=== PATIENT | female | born 1960 | race African-American/Black ===

== ENCOUNTER 2017-12-11 06:47 | Emergency (ER) | payer BC ==
[2017-12-11] MEDS ORDERED: Mag-Al Plus 1200 MG/1200 MG/120 MG/30 ML UDCUP ONE (07:19)
== END 2017-12-11 07:24 | disposition home or self-care (01) ==
LOC: NAV ERS 06:47
DX: R63.0 Anorexia (principal); K21.9 Gastro-esophageal reflux disease without esophagitis
CPT/HCPCS: 99283